=== PATIENT | female | born 1995 | race Two or more races ===

== ENCOUNTER 2018-05-10 15:55 | Observation (INO) | payer MEDICAID ==
[~2018-05-10] VITALS: Ht 154.9 cm; Wt 70.8 kg
[2018-05-10] MEDS ORDERED: ACETAMINOPHEN 500MG TABLET PO NR (16:00)
[2018-05-10] MEDS ORDERED: PREN1TAB87 PO (16:25)
[2018-05-10] MEDS ORDERED: TERBUTALINE SULFATE 1MG/ML VIAL SUBCUT PRN (16:45)
[2018-05-10] MEDS ORDERED: LACTATED RINGERS 1,000 ML IV SCH (17:00)
== END 2018-05-10 17:55 | disposition home or self-care (01) ==
LOC: L&D 15:55
PROVIDERS: ADMIT Specialist; ATTEND Specialist
DX: O26.892 Other specified pregnancy related conditions, second trimester (principal); R10.30 Lower abdominal pain, unspecified; Z3A.25 25 weeks gestation of pregnancy
CPT/HCPCS: 82731; 96360; 96372; 99281; G0378; J3105; J7120; 96361